=== PATIENT | female | born 1965 | race Caucasian/White ===

== ENCOUNTER → 2023-03-25 08:39 | Outpatient (CLI) | payer OTHER, SELFPAY ==
--- NOTE | 2023-03-25 | PATH_ITS ---
[facility] Accession Number: [id number] No. of containers..01 Tissue . 01 Material submitted: . breast - RIGHT BREAST 10:00 6 CM FN MASS . 01 Diagnosis: Right Breast, 10 o'clock, 6 cm from Nipple, Image-Guided Core Biopsy: Invasive ductal carcinoma, well differentiated. - Moriah score: 4 out of 9 possible (glandular=1, nuclear=2, mitotic rate=1). - In situ carcinoma: Present, ductal, cribriform architecture, with intermediate grade nuclei. - Microcalcifications: Present in carcinoma. - Lymphovascular invasion: Not identified. - Greatest linear extent of invasive carcinoma: 0.7 cm, as measured from the glass slide. - Predictive markers: Positive for estrogen and progesterone receptors and equivocal for HER2 by immunohistochemistry (see comment for complete parameters). . Note: HER2 FISH analysis will be performed (at [facility]) with the results reported as an addendum. [facility] 03/28/2023 1129 Local . 01 Comment: Predictive marker immunohistochemical studies are performed on block A1 with the invasive carcinoma showing the following results: . Estrogen receptor (SP1): Positive (100%, strong intensity). Progesterone receptor (1E2): Positive (10%, moderate intensity). Her2 (4B5): Equivocal (2+; percentage of cells with uniform intense complete membrane staining less than 5%). . . Internal controls for ER and NJ are positive. Cold ischemic time is not provided. The scoring criteria for breast biomarkers by immunohistochemistry is based on the ASCO/CAP guidelines (Jaswant AC et al, J Clin Oncol: 2017Jan 06;36(20):5121-1097 and Jaleel ME et al, Arch Pathol Lab Med: 2009;134(6):907-92). Deparaffinized sections of formalin fixed tissue (along with appropriate positive controls) are incubated with the above antibody(s). Using the automated Wilmot stainer, tissue is incubated with the designated antibody which is then localized by a non-biotin, dual polymer detection system. The external controls are reviewed for appropriate reactivity and found to be adequate. Results on the target cell population are indicated above. These tests have not been validated on decalcified tissue. This test was developed and its performance characteristics determined by [facility]. It has not been cleared or approved by the U.S. Food and Drug Administration. The FDA has determined that such clearance or approval is not necessary. This test is used for clinical purposes. It should not be regarded as investigational or for research. . The results of this case are verbally provided by Dr. Beck to Lise Nguyen on 03/28/2023 at 11:15 a.m. . 01 Electronically signed: . Ivania Beck MD, Pathologist NPI- [id number] . 01 Gross description: . Received one formalin-filled container, labeled with the patient's name and right breast 10 o'clock 6 cm FN. The specimen is received with a plastic filter in container, sample loose in container and consists of multiple yellow-holland to holland-larkin, cylindrical-shaped portions of tissue which range in size from 0.2 x 0.2 x 0.2 cm to 1.9 x 0.2 x 0.2 cm. All fragments are totally submitted in one cassette. Possible collection date and time per requisition: 03/25/2023 at 0948. Total fixation time: Approximately 17 hours. ([id number]) /Sabine 03/26/2023 0018 Local . 01 Pathologist provided ICD-10: C50.911 . 01 CPT . 785013, 999567, 922305, 208074 Specimen Comment: A courtesy copy of this report has been sent to [facility] Performed at: 01 [facility] [address] [place] [address], [place], [place] [id number] MD Ricardo Clark MD Phone: [phone]
--- NOTE | 2023-03-25 08:41 | DI.MG.S_ITS ---
UNILATERAL RIGHT DIGITAL DIAGNOSTIC MAMMOGRAM 3D/2D POST-EXCISIONAL BIOPSY: 03/25/2023 CLINICAL: Post clip. Comparison is made to exams dated: 02/06/2023 mammogram and 01/25/2015 mammogram - out side. There are scattered areas of fibroglandular density in the right breast (category b / 25%-50% glandular tissue). Biopsy clip present in right breast upper outer quadrant. IMPRESSION: NEGATIVE Biopsy clip present at site of biopsy. Based on the Tyrer Cuzick model (a risk assessment model) the patient's lifetime risk is 7.7% and her 10 year risk is 3.0%. According to the ACR, ACS, and NCCN guidelines, an annual breast MRI exam along with mammogram is recommended if the patient's lifetime risk is 20% or greater. This exam was interpreted at Station ID: [id number]. NOTE: For mammograms, a report in lay terms will be sent to the patient. Approximately 15% of breast malignancies will not be visualized mammographically. In the management of a palpable breast mass, a negative mammogram must not discourage biopsy of a clinically suspicious lesion. Electronically Signed By: Jere heredia/:03/31/2023 09:41:33 ACR BI-RADS Category 1: Negative 3341F
--- NOTE | 2023-03-25 08:41 | DI.US.S_ITS ---
ULTRASOUND GUIDED BIOPSY RIGHT BREAST: 03/25/2023 CLINICAL: Right breast mass. PATIENT CONSENT: Risks (minor bleeding, infection, vasovagal reaction and repeat procedure), benefits and alternatives were explained to the patient and written informed consent was obtained. PROCEDURE DESCRIPTION: Vacuum assisted ultrasound guided biopsy of mass in right breast upper outer quadrant performed. Localization clip deployed. Correlation is made to exams dated: 03/25/2023 mammogram - [facility], 02/06/2023 mammogram, and 01/25/2015 mammogram - out side. An ultrasound guided biopsy using real-time ultrasound was performed for the irregular shaped mass located in the right breast at 10 o'clock middle depth. This was described on the previous mammography and ultrasound reports. The skin was prepped in the usual manner. A biopsy needle was placed adjacent to the abnormality under ultrasound guidance. Once the needle was documented to be in the correct location, a specimen was obtained using an automated biopsy gun. The specimen was sent to the laboratory for pathological analysis. IMPRESSION: ULTRASOUND GUIDED BIOPSY MALIGNANT Ultrasound guided biopsy of the mass in the right breast upper outer quadrant was performed. Pathology indicates malignant invasive ductal carcinoma (ID) and ductal carcinoma in situ (DCIS). Pathology results are concordant with imaging findings. A surgical/oncologic consultation is recommended. This exam was interpreted at Station ID: [id number]. Jere heredia,at/:04/01/2023 08:31:58 Entry: - 04/01/2023 08:31:58
== END ==
PROVIDERS: Family Provider Nurse Practitioner; Referring Provider Surgery; Visit Provider Surgery
DX: C50.411 Malignant neoplasm of upper-outer quadrant of right female breast (principal); Z17.0 Estrogen receptor positive status [ER+]
CPT/HCPCS: 19083; 77065

== ENCOUNTER 2023-04-18 11:57 | Day surgery (SDC) | payer OTHER, SELFPAY ==
[2023-04-16 12:13] VITALS: BMI 19.0
--- NOTE | 2023-04-18 | DI.MG.S_ITS ---
SPECIMEN RIGHT BREAST- - RIGHT BREAST POST LUMPECTOMY: 04/18/2023 CLINICAL: Right breast specimen. Correlation is made to exams dated: 03/25/2023 mammogram - [facility], 02/06/2023 mammogram, 01/25/2015 mammogram - out side, and 04/18/2023 localization - [facility]. A surgical specimen was imaged for the mass located in the right breast at 11 o'clock middle depth. This was described on the previous mammography and ultrasound reports. IMPRESSION: SPECIMEN The imaged specimen includes the mass, a biopsy clip, and the distal portion of the localization wire. Findings were called to the operating room and conveyed to the surgeon. This exam was interpreted at Station ID: [id number]. Davian Zurita M.D. aty/:04/18/2023 16:44:37
[2023-04-18 12:18] VITALS: BP 141/73; PULSE 77; RESP 16; TEMP 35.8; O2SAT 100; BMI 19.0
[2023-04-18 12:38] VITALS: BMI 19.0
--- NOTE | 2023-04-18 12:38 | PM.PREOP ---
Pre-operative Note Interval Note History & Physical reviewed/Exam performed by Physician: Yes Changes to H&P: No
--- NOTE | 2023-04-18 12:38 | PM.OP.1 ---
Operative Date/Time/Diagnoses Date of procedure: 04/18/23 Time of procedure: 17:34 Pre-op diagnosis: Right breast cancer Post-op diagnosis: same Procedure & Clinicians Procedure: Needle-guided right lumpectomy with sentinel lymph node biopsy Same procedure as scheduled: Yes Indications: 57-year-old woman with a 1.4 cm invasive ductal carcinoma hormone receptor positive in the right breast here for breast conserving therapy. Surgeon: Emeterio Kapoor Click Yes if Unassisted: Yes Anesthesia Type: General Operative Notes Findings: 2 cm firm mass within the right breast. Proximally 10 o'clock position posterior depth. X-ray of specimen demonstrates the wire and clip within the specimen. 10 second count for the sentinel lymph node 200 Specimen(s): other (Right lumpectomy. Right sentinel lymph nodes.) Estimated Blood Loss (mL): 10 Procedure in detail: The patient underwent needle localized prior to the operation. They were brought to the operating room and placed supine on the table. Bilateral lower extremity compression devices were applied. They were intubated with an LMA. 1 ml of methlyene blue mixed w 4 ml saline was injected into the dermal space around the areola and massaged into the tissue. They were prepped and draped in sterile fashion. Time-out was performed. A curvilinear incision on the superior aspect of the right breast was made and subcutaneous tissues were divided. The localizing wire was identified and then brought back within the incision. The end of the wire was within a posterior depth breast mass of approximally 2 cm. The mass was excised with the wire and the clip. Specimen was marked short stitch superior long stitch lateral and standard pain markings to specify the superior anterior posterior inferior medial and lateral margins. Imaging demonstrated that the specimen contained the wire and the associated clip. Three metallic clips were placed into the lumpectomy cavity. Through the incision we could reach the right axilla. The subcutaneous tissue was divided towards the chest wall guided by the Neoprobe. One sentinel lymph node was found the 10nd count was 200. There were 2 other specimens which appeared to have slight blue coloration and were removed. Each sentinel lymph node packet was controlled with metallic clips and then excised. The probe was returned to the cavity and there was minimal background activity. Subcutaneous tissues were reapproximated with 3 0 Vicryl sutures skin closed with Monocryl followed by application of Dermabond. The counts were correct. They emerged from anesthesia and were transferred to recovery in stable condition. Complications: none Post-operative Condition: stable Disposition: same day surgery
[2023-04-18] MEDS: LACTATED RINGERS 1,000 ML 100 ML IV (13:17)
[2023-04-18] MEDS: CEFAZOLIN 2 GM/100 ML PREMIX 100 ML IV (16:00)
--- NOTE | 2023-04-18 16:12 | SUR.OPER ---
Supine on padded OR bed, head on pillow, left arm secured on padded arm boards at <90 degrees abduction, right arm on a padded dunn stand at <90 degree abduction, legs uncrossed, safety belt at thigh, tape over blanket over lower legs.
[2023-04-18] MEDS: METHYLENE BLUE 50 MG/10 ML VIAL INJ (16:18)
[2023-04-18] MEDS: BUPIVACAINE 0.25% (PF) VIAL 30 ML INJ (16:18)
[2023-04-18 17:20] VITALS: BP 133/83; PULSE 85; RESP 16; TEMP 36.8; O2SAT 98
[2023-04-18 17:33] VITALS: BP 129/81; PULSE 80; RESP 16; TEMP 36.2; O2SAT 98
[2023-04-18 17:43] VITALS: BP 133/83; PULSE 72; RESP 16; O2SAT 100
[2023-04-18 17:54] VITALS: BP 113/76; PULSE 76; RESP 16; TEMP 36.7; O2SAT 98
[2023-04-18] MEDS: OXYCODONE/ACETAMINOPHEN 5/325 TABLET 1 TAB PO (17:55)
== END 2023-04-18 18:10 | disposition home or self-care (01) ==
PROVIDERS: Family Provider Nurse Practitioner; PCP Nurse Practitioner Family; Referring Provider Surgery; Visit Provider Surgery
PROC: (CPT 19301; principal; 2023-04-18 15:30)
DX: C50.411 Malignant neoplasm of upper-outer quadrant of right female breast (principal); Z17.0 Estrogen receptor positive status [ER+]; R92.8 Other abnormal and inconclusive findings on diagnostic imaging of breast; N63.11 Unspecified lump in the right breast, upper outer quadrant
CPT/HCPCS: 38500; 19125; 19281; 38792; 76098; A9541; C1819; J0690; J1100; J2250; J2405; J2704; J3010; Q9968

== ENCOUNTER → 2023-04-18 12:01 | Outpatient (CLI) | payer OTHER, SELFPAY ==
--- NOTE | 2023-04-18 | DI.MG.S_ITS ---
DIGITAL TOMOGRAPHIC MAMMOGRAPHY GUIDED WIRE LOCALIZATION RIGHT BREAST WITH POST MAMMOGRAPHIC IMAGIN04/18/2023 CLINICAL: Right breast mass needle loc. Correlation is made to exams dated: 03/25/2023 mammogram - [facility], 02/06/2023 mammogram, and 01/25/2015 mammogram - out side. A wire localization was performed for the mass located in the right breast at 11 o'clock middle depth. This was described on the previous mammography and ultrasound reports. The skin was prepped in the usual manner. Local anesthetic was administered to the access site. The localization was approached from the craniocaudal aspect using an upright digital tomographic mammography unit. A Kopans wire was inserted into the targeted area. A sterile dressing was applied to the access site. Post placement mammographic imaging was obtained showing adequate placement of the localization wire with the thick part of the wire adjacent to the mass and biopsy marker. IMPRESSION: WIRE LOCALIZATION Wire localization for the mass in the right breast at 11 o'clock middle depth was successful. A surgical excision is recommended and scheduled to immediately follow this examination. This exam was interpreted at Station ID: [id number]. Davian Zurita M.D. aty/:04/18/2023 16:47:01
--- NOTE | 2023-04-18 12:02 | DI.NM.S_ITS ---
PROCEDURE: NM SENTINEL NODE INJECT ONLY RADIOPHARMACEUTICAL: 1.0 mCi Millipore filtered Tc-99m sulfur colloid. INDICATIONS: right breast cancer COMPARISON: None. PROCEDURE: The area around the nipple was prepped and draped in a sterile fashion. Tc-99m sulfur colloid was injected intra-dermally around the outer edge of the areola in the right breast. No image was obtained. IMPRESSION: Administration of radiotracer into the right breast periareolar region for intra-operative sentinel lymph node localization. Dictated by: Bassam Rdz M.D. on 04/18/2023 at 13:58 Approved by: Bassam Rdz M.D. on 04/18/2023 at 14:00
== END ==
PROVIDERS: Family Provider Nurse Practitioner; PCP Nurse Practitioner Family; Referring Provider Surgery; Visit Provider Surgery
DX: R92.8 Other abnormal and inconclusive findings on diagnostic imaging of breast (principal); N63.11 Unspecified lump in the right breast, upper outer quadrant
CPT/HCPCS: 19281; 38792; A9541; C1819

== ENCOUNTER → 2023-12-09 09:30 | Outpatient (CLI) | payer OTHER, SELFPAY ==
--- NOTE | 2023-12-09 09:32 | DI.US.S_ITS ---
PROCEDURE: US EXTREMITY NONVASC UPPER LT INDICATIONS: GROWING LUMP LT PALM OF HAND TECHNIQUE: Real-time scanning was performed of the left hand, with image documentation. COMPARISON: None. FINDINGS: Focused ultrasound examination of partner aspect of left hand shows a 1.4 x 0.5 x 0.9 cm solid slightly hypoechoic nodule in subcutaneous soft tissue over 4th metacarpal bone and show no internal vascularity. There is also a 6 x 2 x 6 mm solid hypoechoic nodule seen in slightly more distal subcutaneous soft tissue over palmar aspect of 4th metacarpal bone. No internal vascularity is seen. IMPRESSION: Finding is suggestive of soft tissue nodule of indeterminate nature over palmar aspect of left 4th metacarpal shaft as above. Dictated by: John Coulter M.D. on 12/09/2023 at 14:16 Approved by: John Coulter M.D. on 12/09/2023 at 14:18
== END ==
LOC: US 09:30
PROVIDERS: Family Provider Nurse Practitioner; PCP Nurse Practitioner Family; Referring Provider Nurse Practitioner Family; Visit Provider Nurse Practitioner Family
DX: R22.32 Localized swelling, mass and lump, left upper limb (principal)
CPT/HCPCS: 76882

== ENCOUNTER 2024-03-28 09:27 | Emergency (ER) | payer OTHER, SELFPAY ==
[2024-03-28 09:31] VITALS: BP 138/67; PULSE 91; RESP 16; TEMP 36.4; O2SAT 99; BMI 27.3
[2024-03-28 09:54] LABS: Strep Grp A by PCR Rapid Negative (Negative)
--- NOTE | 2024-03-28 10:02 | ED.URI ---
HPI - URI/Sore Throat General Chief Complaint: Upper Respiratory Symptoms Stated Complaint: sore throat Time Seen by Provider: 03/28/24 10:02 Source: patient, RN notes reviewed and old records reviewed Mode of arrival: Ambulatory Limitations: no limitations History of Present Illness HPI Narrative: 58-year-old female history of hypertension, anxiety, eosinophilic esophagitis, and frequent PVCs, with diagnosis of right breast invasive ductal carcinoma versus, had lumpectomy received radiation therapy letrozole. Patient presents with 5 days of cough and sore throat and hoarseness. No stridor. No muffled voice. Patient states no fevers or chills. Denies nasal congestion. States started developed cough in the last day or so. Does not appreciate a lot of nasal drainage. Patient states no chest pain or shortness of breath. No nausea or vomiting, no diarrhea constipation. No rash or skin changes. Patient states she has had prior lumpectomy. No reported drug allergies. No daily tobacco, does have several glasses of wine nightly, no recreational drugs. She notes no known sick contacts but did have her grandchildren visiting last week. Related Data Home Medications Medication Instructions Recorded Confirmed esomeprazole magnesium 20 mg 20 mg PO DAILY 03/04/23 07/24/23 capsule,delayed release (Nexium) fluoxetine 40 mg PO DAILY 03/04/23 07/24/23 spironolactone 25 mg PO DAILY 03/04/23 07/24/23 losartan 100 mg tablet 100 mg PO DAILY 04/18/23 07/24/23 metoprolol succinate 25 mg 25 mg PO DAILY 04/18/23 07/24/23 tablet,extended release 24 hr verapamil 120 mg tablet,extended 120 mg PO BID 04/18/23 07/24/23 release Previous Rx's Medication Instructions Recorded acetaminophen 325 mg capsule 650 mg (2 x 325 mg) PO QID PRN 04/18/23 (Tylenol) pain #60 caps celecoxib 200 mg capsule (Celebrex) 200 mg PO BID #20 caps 04/18/23 tramadol 50 mg tablet 50 mg PO Q6H PRN pain #15 tabs 04/18/23 Allergies Allergy/AdvReac Type Severity Reaction Status Date / Time No Known Allergies Allergy Verified 07/24/23 10:05 Review of Systems Review of Systems ROS Unobtainable: All systems reviewed & are unremarkable except as noted in HPI and below Patient History Medical History Hypertension Surgical History History of lumpectomy of right breast Hx of section Hx of hysterectomy Family History Father Diabetes mellitus Hypertension Grandmother Heart disease Social History household members: spouse Smoking Status: Former smoker alcohol intake: current Smoking Status: Former smoker alcohol intake frequency: 0-2 drinks per day Substance Use Type: does not use Exam Narrative Exam Narrative: GEN: well nourished, well appearing female, alert and oriented x 3, patient appears to be in mild distress. HEENT: Atraumatic, pupils are equal round reactive to light, extraocular movements are intact, nares are clear, TMs are slightly retracted, no erythema, scant amount of fluid bilaterally,, there is no conjunctival pallor. Throat is clear without any exudates, erythema, mild bilateral tonsillar enlargement, no uvular deviation, bilateral submandibular lymphadenopathy. Patient is slightly hoarse, no muffled voice. Clear speech. No difficulty with secretions HEART: Regular rate and rhythm without murmur, clicks, rubs. LUNGS:Lungs clear to auscultation, no wheezes, rales, crackles, chest moves symmetrically ABD:bowel sounds normal, soft, non-tender, no guarding, rebound, rigidity, no masses noted, no hepatosplenomegaly MSCL: normal gait NEURO:CN 2-12 intact, sensation normal. Initial Vital Signs Initial Vital Signs: Vital Signs Temperature 97.5 F L 03/28/24 09:31 Pulse Rate 91 H 03/28/24 09:31 Respiratory Rate 16 03/28/24 09:31 Blood Pressure 138/67 03/28/24 09:31 Pulse Oximetry 99 03/28/24 09:31 Oxygen Delivery Method Room Air 03/28/24 09:31 Course Orders Ordered: ED Orders 03/28/24 09:35 Throat Culture Stat 03/28/24 09:37 Covid-19 + FLU A/B + RSV - PCR Stat Strep Grp A by PCR Rapid Stat Vital Signs Vital signs: Vital Signs - 8 hr 03/28/24 09:31 Temperature 97.5 F L Pulse Rate 91 H Respiratory Rate 16 Blood Pressure 138/67 Pulse Oximetry 99 Oxygen Delivery Method Room Air MDM - URI/Sore Throat Lab Data Labs: Lab Results 03/28/24 Range/Units 09:37 SARS-CoV-2 (PCR) Negative (Negative) Influenza A (RT-PCR) Flu a negative (NEGATIVE) Influenza B (RT-PCR) Flu b negative (NEGATIVE) RSV (PCR) Negative (Negative) Group A Strep (PCR) Negative (Negative) MDM Narrative Medical decision making narrative: 58-year-old female with 5 days of sore throat hoarseness who started developed little bit of cough in the last 24 hours. Patient likely has viral upper respiratory infection, exam does not seem consistent with strep pharyngitis. Centor criteria 1 points for mild swelling bilateral tonsils. Patient did have throat culture sent. Rapid strep is negative. Throat culture is pending. COVID/influenza/RSV is negative. Well-appearing female in mild distress. Exam is overall reassuring likely has a viral upper respiratory infection throat cultures pending discussed with patient we will call if positive for strep to start antibiotics but less likely based on exam and Centor criteria. Patient is comfortable with the plan discussed return precautions. Discharge Plan Departure Patient Disposition: Home Clinical Impression: Pharyngitis Instructions: DI for Pharyngitis/Tonsillopharyngitis -- Adult Activity Restrictions/Additional Instructions: Follow up as needed, you likely have a viral infection he is typically last 7-10 days. You do have a throat culture pending these typically take 48 hours to result, if positive for strep you would be contacted to start antibiotics. You can take Tylenol and/or ibuprofen as tolerated for fevers or body aches. You can take iwco-[id number]-ibrwcta cough or cold medications as needed. Please avoid Sudafed as this can elevate your blood pressure. Please return for new or concerning changes. Prescriptions: No Action spironolactone 25 mg PO DAILY fluoxetine 40 mg PO DAILY esomeprazole magnesium [Nexium] 20 mg capsule,delayed release(DR/EC) 20 mg PO DAILY verapamil 120 mg tablet extended release 120 mg PO BID metoprolol succinate 25 mg tablet extended release 24 hr 25 mg PO DAILY losartan 100 mg tablet 100 mg PO DAILY celecoxib [Celebrex] 200 mg capsule 200 mg PO BID Qty: 20 0RF acetaminophen [Tylenol] 325 mg capsule 650 mg PO QID PRN (Reason: pain) Qty: 60 0RF tramadol 50 mg tablet 50 mg PO Q6H PRN (Reason: pain) Qty: 15 0RF Referrals: Romi Zhou ARNP [Primary Care Provider] - Stand Alone Forms: Patient Portal/API
[2024-03-28 10:27] LABS: Influenza A - CEPHEID Flu A NEGATIVE (NEGATIVE); Influenza B - CEPHEID Flu B NEGATIVE (NEGATIVE); Respiratory Syncytial Virus Negative (Negative)
[2024-03-28 10:29] LABS: COVID-19 CEPHEID 4-PLEX PCR Negative (Negative)
== END 2024-03-28 11:23 | disposition home or self-care (01) ==
PROVIDERS: Emergency Provider Emergency Medicine; Family Provider Nurse Practitioner; PCP Nurse Practitioner Family
DX: J02.9 Acute pharyngitis, unspecified (principal); R05.9 Cough, unspecified; Z11.52 Encounter for screening for COVID-19
CPT/HCPCS: 0241U; 87070; 87651; 99281; 99282